=== PATIENT | female | born 1950 | race Caucasian/White ===

== ENCOUNTER → 2017-06-29 | Outpatient (CLI) | payer OTHER ==
[~2017-06-29] MED LIST: COUMADIN4 MG PO; FERROUS SULFAT325 MG PO; LOVENOX30 MG/0.3 SC; OXYCODONE HCL10 MG PO; PRAVACHOL20 MG PO; VITAMIN B-122500 MCG SL
[2017-06-29 09:12] LABS: HEMATOCRIT 37.8 % (36.0-46.0); HEMOGLOBIN 11.8 G/DL (11.9-15.5); MCH 26.6 PG (29.0-34.0); MCHC 31.2 G/DL (30.0-36.0); MCV 85.3 FL (83-99); PLATELET COUNT 253 K/uL (156-360); RBC DIS.WIDTH-CV 15.1 % (11.8-14.6); RED BLOOD COUNT 4.43 M/uL (3.80-5.20)
[2017-06-29 09:23] LABS: INTER. NORMALIZED RATIO 1.1
[2017-06-29 09:25] LABS: PTT 27.7 SEC (25-37)
== END | disposition home or self-care (01) ==
LOC: OPR 06-22 09:00 → EDSTATUS 09:00
PROVIDERS: Obstetrics & Gynecology Gynecologic Oncology
PROC: 0WBH4ZX Excision of Retroperitoneum, Percutaneous Endoscopic Approach, Diagnostic (ICD-10-PCS; principal; 2017-06-29)
DX: R19.00 Intra-abdominal and pelvic swelling, mass and lump, unspecified site (principal); C53.9 Malignant neoplasm of cervix uteri, unspecified; Z86.718 Personal history of other venous thrombosis and embolism; Z86.711 Personal history of pulmonary embolism; Z88.5 Allergy status to narcotic agent
CPT/HCPCS: 77012; 85027; 85610; 85730; 88305